=== PATIENT | male | born 1985 | race African-American/Black ===

== ENCOUNTER 2018-08-28 09:09 | Inpatient (IN) | payer OTHER ==
[~2018-08-28] VITALS: Ht 167.6 cm; Wt 88.4 kg
[2018-08-28] MEDS ORDERED: SODIUM CHLORIDE 0.9% 1,000 ML IV ONE (09:37)
[2018-08-28] MEDS ORDERED: carBAMazepine 200 MG TAB PO ONE (09:45)
[2018-08-28] MEDS ORDERED: LORazepam 2MG/ML-1ML VIAL IV ONE (09:45)
[2018-08-28 10:15] LABS: Basophils # (auto) 0 uL; Basophils % (auto) 0.7 % (0.0-2.0); Eosinophils # (auto) 0.1 uL; Eosinophils % (auto) 2.5 % (0.0-7.0); Hematocrit 49.4 % (41.0-53.0); Hemoglobin 16.8 g/dL (13.5-17.5); Lymphocytes # (auto) 1.9 uL; Lymphocytes % (auto) 37.2 % (10.0-50.0); Mean Corpuscular Hemoglobin 31.9 pg (28.0-32.0); Mean Corpuscular Hgb Conc. 33.9 g/dL (32.0-36.0); Mean Corpuscular Volume 94.2 fL (80.0-100.0); Monocytes # (auto) 0.5 uL; Monocytes % (auto) 10.8 % (0.0-12.0); Neutrophils # (auto) 2.5 uL; Neutrophils % (auto) 48.8 % (37.0-80.0); Platelet Count (auto) 184 10^3/uL (140-450); Red Blood Cells 5.25 10^6/uL (4.5-5.90); Red Cell Distribution Width 13.4 % (11.8-14.3); White Blood Cell 5.1 10^3/uL (4.4-10.8)
[2018-08-28 10:33] LABS: Albumin 4.1 g/dL (3.4-5.0); BUN/Creatinine Ratio 15.2; Calcium 8.9 mg/dL (8.5-10.1); Potassium 4.6 mmol/L (3.5-5.1)
[2018-08-28 10:41] LABS: Bilirubin, Total 0.2 mg/dL (0.2-1.0); Total Protein 7.6 g/dL (6.4-8.2)
[2018-08-28] MEDS ORDERED: LORazepam 2MG/ML-1ML VIAL IV PRN (12:45)
[2018-08-28] MEDS ORDERED: NITROGLYCERIN 0.4 MG SL TAB SL PRN (12:45)
[2018-08-28] MEDS ORDERED: MORPHINE SULF INJ 2 MG/ML SYRINGE 1ML IV PRN (12:45)
[2018-08-28] MEDS: SODIUM CHLORIDE 0.9% 1,000 ML IV SCH (12:59)
[2018-08-28 13:03] LABS: Urine Bacteria NONE SEEN /hpf (None Seen); Urine Blood Negative /uL (Negative); Urine Mucus FEW (None Seen); Urine Specific Gravity 1.028 (1.001-1.035); Urine WBC 1 /hpf (0 - 3)
[2018-08-28 13:11] LABS: Alcohol, Urine < 3.0 mg/dL (0-5); Amphetamine Screen, Urine NEGATIVE (NEGATIVE); Barbiturate Scree,Urine NEGATIVE (NEGATIVE); Benzodiazephine Screen, Urine NEGATIVE (NEGATIVE); Cannabinoid Screen, Urine POSITIVE (NEGATIVE); Cocaine Screen, Urine POSITIVE (NEGATIVE); Opiate Scree,Urine NEGATIVE (NEGATIVE); Phencyclidine Screen, Urine NEGATIVE (NEGATIVE)
[2018-08-28] MEDS: carBAMazepine 200 MG TAB PO SCH ×2 (14:00→21:31)
[2018-08-28 20:58] VITALS: BP 134/70
--- NOTE | 2018-08-28 21:00 | NUR ---
Telemetry admit from ER KAMERONLUCIANO admitted to Telemetry unit after SBAR received. Patient oriented to Pb Perez, primary RN, unit, room, bed, and unit policies regarding patient care and visiting hours. Patient now on continuous telemetry monitoring, tele box # [id number] and telemetry reading on arrival to unit is SR. Patient is on RA, weighed by bedscale and encouraged to call if they need something. All questions and concerns addressed, patient verbalized understanding.
[2018-08-28 21:25] VITALS: BP 116/74
[2018-08-28] MEDS: LEVETIRACETAM 500 MG TAB PO SCH (21:31)
[2018-08-28 21:45] VITALS: BP 116/74
--- NOTE | 2018-08-28 22:00 | NUR ---
HOSPITALIST PAGED The patient states that he is experiencing a migraine. He reports that he usually has a migraine after having a seizure. Hospitalist has been paged for PRN pain medication.
--- NOTE | 2018-08-28 22:30 | NUR ---
HOSPITALIST CALL New order for PRN pain medication has been received.
[2018-08-28] MEDS ORDERED: HYDROcodone-ACET 5/325MG TAB PO PRN (22:45)
--- NOTE | 2018-08-28 23:30 | NUR ---
IV insertion IV access obtained, via clean sterile technique by inserting gauge catheter at the right forearm after 2 attempt(s). IV secured properly. No trauma to site. Patient tolerated well.
[2018-08-29] MEDS: SODIUM CHLORIDE 0.9% 1,000 ML IV SCH ×2 (04:32→15:23)
[2018-08-29 05:00] VITALS: BP 121/66
[2018-08-29] MEDS ORDERED: KEP500T PO (05:39)
[2018-08-29] MEDS: carBAMazepine 200 MG TAB PO SCH ×2 (06:22→14:30)
--- NOTE | 2018-08-29 07:15 | NUR ---
CLOSING SHIFT NOTE Care has been endorsed to RAMSES MEYER.
--- NOTE | 2018-08-29 07:30 | NUR ---
Opening Shift Note RECEIVED REPORT FROM NOC RN. Assumed care of patient, awake and alert. No S/S of distress/SOB or pain. BED IN LOWEST, LOCKED POSITION WITH SIDERAILS UP x2. Instructed on POC and to call for assist PRN, will continue to monitor for changes Q1hr and PRN.
[2018-08-29 08:20] VITALS: BP 129/69
[2018-08-29 09:27] VITALS: BP 129/69
[2018-08-29] MEDS: LEVETIRACETAM 500 MG TAB PO SCH (09:51)
[2018-08-29 17:22] VITALS: BP 121/61
[2018-08-29 17:50] VITALS: BP 121/61
--- NOTE | 2018-08-29 18:35 | NUR ---
Discharge instructions given as ordered. Encourage to follow up with PMD as instructed. All questions and concerns addressed. Patient verbalized understanding. Medication reconciliation form completed and copy given to patient. IV removed with catheter intact, pressure dressing applied. Telemetry unit returned to [facility]. Patient taken to vehicle via wheelchair with all personal belongings, accompanied by staff and family member. No distress noted at time of departure.
== END 2018-08-29 18:31 | disposition home or self-care (01) | DRG 53 ==
LOC: ER 09:09 → EDBD 09:09 → TELE 09:10 → TELE-WESTW 20:58
PROVIDERS: ADMIT Internal Medicine; ATTEND Internal Medicine Pulmonary Disease
DX: G40.201 Localization-related (focal) (partial) symptomatic epilepsy and epileptic syndromes with complex partial seizures, not intractable, with status epilepticus (principal); G40.401 Other generalized epilepsy and epileptic syndromes, not intractable, with status epilepticus; F12.90 Cannabis use, unspecified, uncomplicated; F14.90 Cocaine use, unspecified, uncomplicated; G43.109 Migraine with aura, not intractable, without status migrainosus; F17.210 Nicotine dependence, cigarettes, uncomplicated; Z79.899 Other long term (current) drug therapy; Z88.0 Allergy status to penicillin
CPT/HCPCS: 36415; 70450; 80053; 80156; 80307; 81001; 85025; 85652; 96361; 96374; G0378